=== PATIENT | female | born 1990 | race Caucasian/White ===

== ENCOUNTER → 2019-09-24 14:47 | Observation (INO) ==
[2019-09-24 12:18] LABS: Bilirubin,Urine Moderate (Negative); Blood,Urine Negative (Negative); Clarity,Urine Cloudy (Clear); Color,Urine Red (Yellow); Glucose,Urine (UA) Normal (Normal); Ketones,Urine 80 mg/dL (Negative); Leukocyte Esterase,Urine Small (Negative); Nitrite,Urine Negative (Negative); PH,Urine 6.5 pH Units (5.0-8.0); Protein,Urine 100 mg/dL (Neg-Trace)
[2019-09-24 12:19] LABS: Amphetamine Screen,Urine Negative ng/mL (Cutoff=1000); Barbiturate Screen,Urine Negative ng/mL (Cutoff=200); Benzodiazepines Screen,Urine Negative ng/mL (Cutoff=200); Cannabinoid Screen,Urine Negative ng/mL (Cutoff = 50); Cocaine Screen,Urine Negative ng/mL (Cutoff= 300); Opiate Screen,Urine Negative ng/mL (Cutoff=300); Phencyclidine Screen,Urine Negative ng/mL (Cutoff=25)
[2019-09-24 12:22] LABS: Bacteria,Urine Moderate per hpf (None-Few); Squamous Epithelial Cell,Urine Many per lpf (None-Few)
[2019-09-24 12:33] LABS: Mucus,Urine Few per lpf (Few); RBC,Urine 0-3 per hpf (0-3)
[2019-09-24 12:56] LABS: Basophils % 0.3 %; Eosinophils # 0.1 K/mcL (0.0-0.6); Eosinophils % 0.5 %; Hematocrit 36.2 % (35.3-44.9); Hemoglobin 12.1 g/dL (11.5-15.4); Lymphocytes # 0.7 K/mcL (0.6-4.6); Lymphocytes % 7.3 %; Mean Corpuscular HGB Conc 33.4 g/dL (31.6-35.5); Mean Corpuscular Volume 95.8 fL (83.0-100.0); Mean Platelet Volume 11.4 fL (9.4-12.4); Monocytes # 1.1 K/mcL (0.0-1.3); Monocytes % 10.9 %; Neutrophils # 7.8 K/mcL (1.6-8.9); Platelet Count 160 K/mcL (140-400); Red Blood Count 3.78 M/mcL (3.82-4.97); Red Cell Distribution Width 12.8 % (11.5-14.5); White Blood Count 9.7 K/mcL (4.3-11.1)
[~2019-09-24 14:47] MED LIST: Ondansetron 4 MG/2 ML VIAL IVP PRN; Ringers Solution, Lactated 1,000 ML IVC ONE; Ringers Solution, Lactated 1,000 ML ONE
== END | disposition home or self-care (01) ==
LOC: 1NENULAB
PROVIDERS: ADMIT Advanced Practice Midwife; ATTEND Advanced Practice Midwife

== ENCOUNTER 2019-11-29 17:10 | Inpatient (IN) ==
[2019-11-29] MEDS ORDERED: Naloxone 0.4 MG/ML INJ IVP PRN (17:51)
[2019-11-29] MEDS ORDERED: Ondansetron 4 MG/2 ML VIAL IVP PRN (17:51)
[2019-11-29] MEDS ORDERED: Famotidine 20 MG/2 ML VIAL IVP PRN (17:51)
[2019-11-29] MEDS ORDERED: Metoclopramide 10 MG/2 ML VIAL IVP PRN (17:51)
[2019-11-29] MEDS ORDERED: *HR* FentaNYL (PF) 100 MCG/2 ML VIAL IVP PRN (17:51)
[2019-11-29 18:19] LABS: Immature Granulocytes % 0.8 % (0-4); Mean Platelet Volume 13.1 fL (9.4-12.4); Red Cell Distribution Width 15.9 % (11.5-14.5)
[2019-11-29 18:21] LABS: Basophils # 0.1 K/mcL (0.0-0.2); Basophils % 0.5 %; Eosinophils # 0.1 K/mcL (0.0-0.6); Hematocrit 37.1 % (35.3-44.9); Hemoglobin 12.2 g/dL (11.5-15.4); Lymphocytes # 1.7 K/mcL (0.6-4.6); Lymphocytes % 15.9 %; Mean Corpuscular HGB Conc 32.9 g/dL (31.6-35.5); Mean Corpuscular Volume 91.2 fL (83.0-100.0); Monocytes # 0.9 K/mcL (0.0-1.3); Monocytes % 8.4 %; Neutrophils # 7.6 K/mcL (1.6-8.9); Platelet Count 160 K/mcL (140-400); Red Blood Count 4.07 M/mcL (3.82-4.97); Segmented Neutrophils % 73.4 %; White Blood Count 10.4 K/mcL (4.3-11.1)
[2019-11-29 18:22] LABS: Amphetamine Screen,Urine Negative ng/mL (Cutoff=1000); Barbiturate Screen,Urine Negative ng/mL (Cutoff=200); Benzodiazepines Screen,Urine Negative ng/mL (Cutoff=200); Cannabinoid Screen,Urine Negative ng/mL (Cutoff = 50); Cocaine Screen,Urine Negative ng/mL (Cutoff= 300); Opiate Screen,Urine Negative ng/mL (Cutoff=300); Phencyclidine Screen,Urine Negative ng/mL (Cutoff=25)
[2019-11-29] MEDS: Oxytocin 20 units/ LR 1000 mL 20 UNIT/1,000 ML BAG IVC SCH (18:24)
[2019-11-29] MEDS: Ringers Solution, Lactated 1,000 ML IVC SCH (18:24)
[2019-11-29 18:34] LABS: Reactive Lymphocytes Present (Not Present); Toxic Granulation Present (Not Present)
[2019-11-29 18:35] LABS: Large Platelets Present (Not Present); Polychromasia 1+ (Not Present)
[2019-11-30] MEDS ORDERED: Ringers Solution, Lactated 1,000 ML ONE ×2 (00:37→20:53)
[2019-11-30] MEDS ORDERED: EPHEDrine 50 MG/ML VIAL IVP PRN (02:30)
[2019-11-30] MEDS: Epidural Premix (fent/bupiv) 110 ML EP SCH ×2 (03:00→12:14)
[2019-11-30] MEDS: Ringers Solution, Lactated 1,000 ML IVC SCH ×3 (05:38→22:05)
[2019-11-30] MEDS ORDERED: Acetaminophen 325 MG TABLET PO ONE (09:15)
[2019-11-30] MEDS ORDERED: Penicillin G Potassium 5,000,000 UNIT in 0.9 % Sodium Chloride Mini Bag 100 ML IVPB STA (14:46)
[2019-11-30] MEDS ORDERED: Acetaminophen 325 MG TABLET PO PRN (15:15)
[2019-11-30] MEDS ORDERED: Ropivacaine/PF 0.2% 20 ML VIAL ONE (16:49)
[2019-11-30] MEDS ORDERED: *HR* FentaNYL (PF) 100 MCG/2 ML VIAL ONE ×3 (16:49→20:39)
[2019-11-30] MEDS ORDERED: Penicillin G Potassium 2,500,000 UNIT in 0.9 % Sodium Chloride 100 ML IVPB SCH (18:50)
[2019-11-30] MEDS ORDERED: Lidocaine/EPI 1:200k 2% PF 20 ML VIAL ONE (20:39)
[2019-11-30] MEDS ORDERED: *HR* Oxytocin 10 UNIT/ML VIAL IM ONE (20:53)
[2019-11-30] MEDS ORDERED: *HR* Morphine Sulfate/PF 10 MG/10 ML AMPUL ONE (21:11)
[2019-11-30] MEDS ORDERED: *HR* HYDROmorphone PF 0.5 MG/0.5 ML SYRINGE IVP PRN (21:16)
[2019-11-30] MEDS ORDERED: *HR* OxyCODONE Immed Rel 5 MG TABLET PO PRN (21:16)
[2019-11-30] MEDS ORDERED: Acetaminophen IV 1,000 MG/100 ML INFUS..BTL IVPB ONE (21:16)
[2019-11-30] MEDS ORDERED: cefTRIAXone 2,000 MG in Water for inj. (sterile) 20 ML IVP ONE (21:18)
[2019-11-30] MEDS ORDERED: MetroNIDAZOLE 500 MG/100 ML 500 MG/100 ML BAG IVPB ONE (21:19)
[2019-11-30] MEDS ORDERED: Ondansetron 4 MG/2 ML VIAL ONE (21:29)
[2019-11-30] MEDS ORDERED: *HR* Promethazine 25 MG/ML VIAL ONE (21:34)
[2019-11-30] MEDS: Oxytocin 20 units/ LR 1000 mL 20 UNIT/1,000 ML BAG IVC SCH (22:08)
[2019-12-01] MEDS ORDERED: Ondansetron 4 MG/2 ML VIAL IVP PRN (00:06)
[2019-12-01] MEDS ORDERED: Sennosides 8.6 MG TABLET PO PRN (00:06)
[2019-12-01] MEDS ORDERED: Rho Immune Globulin 1,500 UNIT SYRINGE IM ONE (00:06)
[2019-12-01] MEDS ORDERED: *HR* OxyCODONE/APAP 5/325 TABLET PO PRN (00:06)
[2019-12-01] MEDS ORDERED: Metoclopramide 10 MG/2 ML VIAL IVP PRN (00:06)
[2019-12-01] MEDS ORDERED: Ringers Solution, Lactated 1,000 ML IVC SCH (00:06)
[2019-12-01] MEDS ORDERED: Simethicone 80 MG TAB.CHEW PO PRN (00:06)
[2019-12-01] MEDS: Oxytocin 20 units/ LR 1000 mL 20 UNIT/1,000 ML BAG IVC SCH ×2 (00:51→09:10)
[2019-12-01 07:00] LABS: Hematocrit 32.5 % (35.3-44.9); Lymphocytes # 0.7 K/mcL (0.6-4.6); Mean Corpuscular Hemoglobin 29.7 pg (28.0-33.3); Mean Corpuscular Volume 92.9 fL (83.0-100.0); Mean Platelet Volume 12.7 fL (9.4-12.4); Platelet Count 151 K/mcL (140-400); Red Cell Distribution Width 16.1 % (11.5-14.5)
[2019-12-01 07:27] LABS: Hemoglobin 10.4 g/dL (11.5-15.4); White Blood Count 18.6 K/mcL (4.3-11.1)
[2019-12-01 07:29] LABS: Monocytes # 0.4 K/mcL (0.0-1.3); Neutrophils # 17.5 K/mcL (1.6-8.9); Platelet Estimate Slight Decrease (Normal)
[2019-12-01 07:30] LABS: Anisocytosis 1+ (Not Present); Macrocytosis Present (Not Present)
[2019-12-01 07:46] VITALS: BP 132/90
[2019-12-01] MEDS: Ibuprofen 600 MG TABLET PO PRN ×2 (08:01→16:26)
[2019-12-01] MEDS ORDERED: Prenatal Vit/FA 1 EACH TABLET PO SCH (09:00)
[2019-12-01] MEDS ORDERED: metroNIDAZOLE 500 MG TABLET PO SCH (09:00)
[2019-12-01] MEDS: cephALEXin 500 MG CAPSULE PO SCH ×2 (09:10→15:49)
== END 2019-12-01 20:33 | disposition home or self-care (01) ==
LOC: 1NENULAB 17:10 → 1NENUOBS 12-01 00:17
PROVIDERS: ADMIT Registered Nurse; ATTEND Registered Nurse

== ENCOUNTER 2021-03-19 08:02 | Inpatient (IN) ==
[2021-03-19] MEDS ORDERED: Famotidine 20 MG/2 ML VIAL IVP ONE (08:08)
[2021-03-19] MEDS ORDERED: CeFAZolin 2,000MG/50ML DUPLEX 2,000 MG/50 ML BAG IVPB ONE (08:08)
[2021-03-19] MEDS ORDERED: Metoclopramide 10 MG/2 ML VIAL IVP ONE (08:08)
[2021-03-19] MEDS ORDERED: Ringers Solution, Lactated 1,000 ML IVC ONE (08:08)
[2021-03-19] MEDS ORDERED: Ringers Solution, Lactated 1,000 ML IVC SCH (08:15)
[2021-03-19 08:49] LABS: Basophils # 0.1 K/mcL (0.0-0.2); Basophils % 0.6 %; Eosinophils # 0.1 K/mcL (0.0-0.6); Eosinophils % 1.4 %; Hematocrit 37.7 % (35.3-44.9); Hemoglobin 12.3 g/dL (11.5-15.4); Immature Granulocytes % 1.3 % (0-4); Lymphocytes # 1.5 K/mcL (0.6-4.6); Lymphocytes % 16.8 %; Mean Corpuscular HGB Conc 32.6 g/dL (31.6-35.5); Mean Corpuscular Hemoglobin 31.8 pg (28.0-33.3); Mean Corpuscular Volume 97.4 fL (83.0-100.0); Mean Platelet Volume 11.8 fL (9.4-12.4); Monocytes # 0.9 K/mcL (0.0-1.3); Monocytes % 9.7 %; Neutrophils # 6.4 K/mcL (1.6-8.9); Platelet Count 162 K/mcL (140-400); Red Blood Count 3.87 M/mcL (3.82-4.97); Red Cell Distribution Width 13.2 % (11.5-14.5); Segmented Neutrophils % 70.2 %; White Blood Count 9.1 K/mcL (4.3-11.1)
[2021-03-19] MEDS ORDERED: *HR* HYDROmorphone PF 0.5 MG/0.5 ML SYRINGE IVP PRN (09:12)
[2021-03-19] MEDS ORDERED: *HR* Meperidine 25 MG/ML SYRINGE IVP PRN (09:12)
[2021-03-19] MEDS ORDERED: Promethazine 6.25 MG in Water for inj. (sterile) 20 ML IVPB PRN (09:12)
[2021-03-19] MEDS ORDERED: *HR* Labetalol 20 MG/4 ML SYRINGE IVP PRN (09:12)
[2021-03-19] MEDS ORDERED: *HR* FentaNYL (PF) 100 MCG/2 ML VIAL ONE (09:59)
[2021-03-19] MEDS ORDERED: *HR* Morphine Sulfate/PF 10 MG/10 ML AMPUL ONE (09:59)
[2021-03-19] MEDS ORDERED: Ondansetron 4 MG/2 ML VIAL ONE (09:59)
[2021-03-19] MEDS ORDERED: *HR* Midazolam HCl 2 MG/2 ML VIAL ONE (09:59)
[2021-03-19] MEDS ORDERED: Ringers Solution, Lactated 1,000 ML ONE ×2 (09:59→19:54)
[2021-03-19] MEDS ORDERED: Ketorolac 30 MG/ML VIAL ONE (09:59)
[2021-03-19] MEDS ORDERED: EPHEDrine 50 MG/ML VIAL ONE (09:59)
[2021-03-19] MEDS ORDERED: *HR* Oxytocin 10 UNIT/ML VIAL IM ONE (09:59)
[2021-03-19 10:09] LABS: Amphetamine Screen,Urine Negative ng/mL (Cutoff=1000); Barbiturate Screen,Urine Negative ng/mL (Cutoff=200); Benzodiazepines Screen,Urine Negative ng/mL (Cutoff=200); Cannabinoid Screen,Urine Negative ng/mL (Cutoff = 50); Cocaine Screen,Urine Negative ng/mL (Cutoff= 300); Opiate Screen,Urine Negative ng/mL (Cutoff=300); Phencyclidine Screen,Urine Negative ng/mL (Cutoff=25)
[2021-03-19] MEDS ORDERED: Scopolamine Patch 1.5 MG PATCH.TD72 TD ONE (11:36)
[2021-03-19] MEDS ORDERED: *HR* Promethazine 25 MG/ML VIAL ONE (11:38)
[2021-03-19] MEDS ORDERED: *HR* Magnesium Sulfate 1 GM/2 ML VIAL ONE (11:38)
[2021-03-19] MEDS ORDERED: Ondansetron 4 MG/2 ML VIAL IVP PRN (14:31)
[2021-03-19] MEDS ORDERED: *HR* Nalbuphine 10 MG/ML AMPUL IV PRN (14:31)
[2021-03-19] MEDS ORDERED: Oxytocin 20 units/ LR 1000 mL 20 UNIT/1,000 ML BAG IVC SCH (14:31)
[2021-03-19] MEDS ORDERED: Metoclopramide 10 MG/2 ML VIAL IVP PRN (14:31)
[2021-03-19] MEDS ORDERED: *HR* OxyCODONE Immed Rel 5 MG TABLET PO PRN (14:31)
[2021-03-19] MEDS: Simethicone 80 MG TAB.CHEW PO SCH ×2 (15:24→21:50)
[2021-03-19] MEDS ORDERED: *HR* Promethazine 25 MG/ML VIAL IM ONE (16:00)
[2021-03-19] MEDS ORDERED: Acetaminophen 325 MG TABLET PO SCH (17:00)
[2021-03-19] MEDS ORDERED: Ketorolac 30 MG/ML VIAL IVP SCH (17:00)
[2021-03-20] MEDS ORDERED: Ibuprofen 600 MG TABLET PO SCH (05:00)
[2021-03-20 07:54] VITALS: BP 109/67
[2021-03-20] MEDS: Simethicone 80 MG TAB.CHEW PO SCH (08:08)
[2021-03-20] MEDS ORDERED: Prenatal Vit/FA 1 EACH TABLET PO SCH (09:00)
== END 2021-03-20 13:00 | disposition home or self-care (01) | DRG 785 ==
LOC: 1NENULAB 08:02 → 1NENUOBS 14:35
PROVIDERS: ADMIT Obstetrics & Gynecology; ATTEND Obstetrics & Gynecology